=== PATIENT | female | born 1935 | race Caucasian/White ===

== ENCOUNTER 2017-03-31 04:20 | Inpatient (IN) | payer OTHER ==
[~2017-03-31] VITALS: Ht 160 cm; Wt 65.8 kg
[~2017-03-31 04:20] MED LIST: BABY ASPIRIN PO; DIAVAN PO; MAC100 PO; PRILOSEC40 MG PO; ZOCOR10 MG PO; [UNRECOGNIZED DRUG - OTHER] PO
--- NOTE | 2017-03-31 04:41 | NUR ---
PT BIB [facility]. PT BROUGHT TO ROOM BY CASIE. PT ABLE TO SHIFT TO BED WITH SOME HELP. PT C/O GENERALIZED WEAKNESS AND FLU LIKE SYMPTOMS X 1 DAY. PT STATES SHE HAD TEMP OF 102+ AT HOME. PT HAD RECENT PROCEDURE OF INJECTING NERVES IN HER BACK AND SHE WAS INTUBATED FOR THE PROCEDURE. PT IS LAYING IN BED ON THE CARDIAC MOITOR. LUNG SOUNS ARE CTA RIGHT SIDE AND DIM/CONGESTED LLL. CALL LIGHT IS WITHIN REACH AND DAUGHTER IS AT BEDSIDE. WILL CONTINUE TO MONITOR.
[2017-03-31 05:26] LABS: BASOPHIL % 0.4 % (0-2); PLATELET COUNT 212 x10^3mcL (130-400); RED CELL DISTRIBUTION WIDTH 14.1 % (11.5-14.5)
[2017-03-31 05:31] LABS: CALCIUM 8.7 mg/dL (8.5-10.1); CARBON DIOXIDE 30.2 mmol/L (21-32); CHLORIDE SERUM 98 mmol/L (98-107); CREATININE SERUM 0.7 mg/dL (0.6-1.0); GLUCOSE SERUM 143 mg/dL (74-106); POTASSIUM SERUM 3.4 mmol/L (3.5-5.1); SODIUM SERUM 138 mmol/L (136-145)
[2017-03-31 05:36] LABS: ALBUMIN 3.8 g/dL (3.4-5.0); ALKALINE PHOSPHATASE 72 U/L (46-116); ALT/SGPT 27 U/L (14-59); AST/SGOT 20 U/L (15-37); BILIRUBIN TOTAL 0.49 mg/dL (0.20-1.00); TOTAL PROTEIN, SERUM 7.3 g/dL (6.4-8.2)
[2017-03-31 05:58] LABS: CK-MB < 0.5 ng/mL (0-3.6); CREATINE KINASE 148 U/L (26-192)
[2017-03-31] MEDS ORDERED: DIOVAN320 MG PO (06:42)
[2017-03-31] MEDS ORDERED: NORVASC10 MG PO (06:45)
[2017-03-31] MEDS ORDERED: GOOD SENSE OMEP20 MG PO (06:46)
[2017-03-31] MEDS ORDERED: CYMBALTA60 M1 PO (06:46)
[2017-03-31] MEDS ORDERED: LOPRESSOR50 M1 PO (06:47)
[2017-03-31] MEDS ORDERED: CYCLOBENZAPRINE5 MG PO (06:48)
[2017-03-31] MEDS ORDERED: AMITRIPTYLINE H25 MG PO (06:50)
[2017-03-31] MEDS ORDERED: LASIX20 MG PO (06:51)
--- NOTE | 2017-03-31 07:05 | NUR ---
REPORT GIVEN TO RENETTA ALMANZAR. ALL QUESTIONS AND CONCERNS ADDRESSED.
--- NOTE | 2017-03-31 07:42 | NUR ---
PT ADMIT TO TELE ROOM 219A GAVE REPORT TO YVES
--- NOTE | 2017-03-31 07:57 | NUR ---
RECEIVED THE PATIENT FROM ER DEPT VIA [facility]; THE PATIENT AMBULATED TO THE BED WITH SLOW GAIT. THE PATIENT ALERT AND ORIENTED TO PERSON, PLACE AND TIME. H/L NOTED TO LAC. TELE # 36 APPLIED. VS CHECKED. ORIENTED THE PATIENT TO ROOM AND EQUIPMENT. ASSESSMENT WAS IMPLEMENTED. CALL LIGHT WITHIN REACH. SIDE RAILS UP X3. BED WAS AT LOWEST POSITION AND BED ALARM WAS ON. CONTINUE TO MONITOR.
[2017-03-31 08:03] LABS: CHOLESTEROL/HDL RATIO 2.5
[2017-03-31 08:10] LABS: T3 TOTAL 1.1 ng/mL
[2017-03-31 08:12] LABS: FREE T4 1.13 ng/dL (0.76-1.46); FREE THYROXINE INDEX 3.1 ug/dL (1.4-4.5); T4(THYROXINE) 8.9 ug/dL (4.7-13.3)
[2017-03-31 08:45] VITALS: BP 132/47
[2017-03-31 09:53] VITALS: BP 132/47
[2017-03-31 14:21] VITALS: BP 136/52
[2017-03-31 15:22] LABS: UA SPECIFIC GRAVITY <=1.005 (1.005-1.035); microscopic required? YES; urine erythrocyte TRACE (NEGATIVE)
[2017-03-31 17:43] VITALS: BP 156/49
--- NOTE | 2017-03-31 18:41 | NUR ---
THE PATIENT STATED FEELING BETTER AND DID NOT NEED NASAL CANNULA FOR OXYGEN. PATIENT USED BRP DURING THE SHIFT.
--- NOTE | 2017-03-31 19:10 | NUR ---
REC'D PT FROM DAY SHIFT NURSE. PT AAOX4, SPEECH CLEAR, FOLLOWS COMMANDS. REMOVED TELE PER ORDER. DENIES CP, DIZZINESS, OR PALPITATIONS. NO RESP DISTRESS OR SOB. C/O PRODUCTIVE COUGH WITH SMALL AMTS OF YELLOW SPUTUM. MUCOMYST TO BE ADM BY RT. SKIN INTACT. AMBULATORY. ALSO C/O NECK PAIN AND DORSEY 4/10. WILL GIVE TYLENOL PER ORDER. TEMP OF 99.6. COOLING MEASURES IN PLACE- APPLIED COLD COMPRESS, AC ON, BLANKETS REMOVED. CALL LIGHT WITHIN REACH, BED AT LOWEST POSITION. WILL CONTINUE TO MONITOR.
--- NOTE | 2017-03-31 19:58 | NUR ---
TOMMY REMOVAL AND REPLACEMENT SCHEDULED FOR 03/24 @ 1030. PT HAS HD SCHEDULED FOR 04/01 @ 1200. SPOKE TO [facility] TO CONFIRM APPT. INFORMED HER DAY NURSE WILL CALL ONCE PT HAS COMPLETED SX.
[2017-03-31 21:06] VITALS: BP 150/54
--- NOTE | 2017-04-01 02:34 | NUR ---
PT RESTING IN BED WITH EYES CLOSED. AUDIBLE SNORING. NO SIGNS OF DISTRESS NOTED. BREATHING EVEN/UNLABORED ON RA. CALL LIGHT WITHIN REACH, BED AT LOWEST POSITION. WILL CONTINUE TO MONITOR.
[2017-04-01 05:26] VITALS: BP 151/54
[2017-04-01 06:26] LABS: BASOPHIL % 0.2 % (0-2); PLATELET COUNT 164 x10^3mcL (130-400); RED CELL DISTRIBUTION WIDTH 13.7 % (11.5-14.5)
--- NOTE | 2017-04-01 06:27 | NUR ---
PT RESTING IN BED WITH EYES CLOSED. NO SIGNS OF DISTRESS NOTED. BREATHING EVEN/UNLABORED ON RA. C/O DORSEY 02/22 AND COUGH WITH YELLOW SPUTUM. TYLENOL GIVEN PER ORDER, MUCOMYST TO BE GIVEN BY RT. PT STATES SHE FEELS BETTER AND SLEPT WELL. PT AFEBRILE. NO SIGNIFICANT CHANGES DURING SHIFT. WILL ENDORSE TO DAY SHIFT NURSE.
[2017-04-01 06:48] LABS: CALCIUM 8.6 mg/dL (8.5-10.1); CARBON DIOXIDE 29.9 mmol/L (21-32); CHLORIDE SERUM 105 mmol/L (98-107); CREATININE SERUM 0.6 mg/dL (0.6-1.0); GLUCOSE SERUM 99 mg/dL (74-106); MAGNESIUM 2.1 mg/dL (1.8-2.4); POTASSIUM SERUM 3.6 mmol/L (3.5-5.1); SODIUM SERUM 142 mmol/L (136-145)
--- NOTE | 2017-04-01 07:30 | NUR ---
RESUME CARE: THE PATIENT ALERT AND ORIENTED TO PERSON, PLACE AND TIME. DENIED SHORTNESS OF BREATH, PAIN OR NAUSEA/VOMITING. PATIENT HAD PRODUCTIVE COUGH WITH YELLOW SPUTUM. IVF NS VIA H/L TO LAC. CALL LIGHT WITHIN REACH. SIDE RAILS UP X3. BED WAS AT LOWEST POSITION AND ALARM WAS ON.
--- NOTE | 2017-04-01 09:10 | NUR ---
DR. BRAY AND THE TEAM WERE MAKING ROUND TO SEE THE PATIENT. THE CARE PLAN WAS DISCUSSED WITH THE PATIENT, AND THE PATIENT VERBALIZED AGREEMENT WITH THE PLAN.
[2017-04-01 10:26] VITALS: BP 128/58
--- NOTE | 2017-04-01 11:25 | NUR ---
DR. MIGUEL IN TO SEE THE PATIENT.
[2017-04-01 18:00] VITALS: BP 131/65
--- NOTE | 2017-04-01 18:43 | NUR ---
PATIENT'S APPETITE INCREASED GRADUALLY. PATIENT AMBULATED IN THE HALLWAY SEVERAL TIMES DURING THE SHIFT.
--- NOTE | 2017-04-01 19:20 | NUR ---
PATIENT RECEIVED AWAKE, ALERT, AND ORIENTED X 4. NO DISTRESS NOTED. NO C/O PAIN/DISCOMFORT. IV SITE TO LEFT AC, PATENT AND INTACT. IV FLUID INFUSING PER DOCTOR'S ORDER. BED IN LOWEST POSITION. CALL LIGHT WITHIN REACH. WILL CONTINUET TO MONITOR.
[2017-04-01 20:40] VITALS: BP 150/56
--- NOTE | 2017-04-02 05:13 | NUR ---
PATIENT RESTED THROUGHOUT THE NIGHT. NO DISTRESS NOTED. NO C/O PAIN/DISCOMFORT. ALL NEEDS MET. SAFETY AND COMFORT MEASURES MAINTAINED. BED IN LOWEST POSITION. CALL LIGHT WITHIN REACH. WILL CONTINUE TO MONITOR AND ENDORSE TO NEXT SHIFT NURSE.
[2017-04-02 05:28] VITALS: BP 155/46
[2017-04-02 06:19] LABS: BASOPHIL % 0.2 % (0-2); PLATELET COUNT 160 x10^3mcL (130-400); RED CELL DISTRIBUTION WIDTH 14.2 % (11.5-14.5)
--- NOTE | 2017-04-02 09:00 | NUR ---
Pt is A+Ox4, denies pain, nausea, headache, and SOB. Pt is [place]. PULSES STRONG AND EQUAL BILATERALLY, NO EDEMA PRESENT, PT IS AMBULATORY WITHOUT ASSISTANCE, LUNG SOUNDS: CRACKLES, PRODUCTIVE COUGH WITH YELLOW SPUTUM, BOWEL SOUNDS ACTIVE IN ALL 4 QUADRANTS, VOIDING WITHOUT DIFFICULTY, SKIN INTACT, IV IN LAC WITH NS @80 ML/HR. AFEBRILE.
[2017-04-02 09:49] VITALS: BP 155/60
[2017-04-02] MEDS ORDERED: LEVAQUIN500 M1 PO (10:33)
[2017-04-02] MEDS ORDERED: CLEOCIN HCL300 MG PO (10:33)
[2017-04-02] MEDS ORDERED: LAC PO (10:34)
[2017-04-02] MEDS ORDERED: ROBITUSSIN PEA PO (10:47)
--- NOTE | 2017-04-02 12:56 | NUR ---
PT SITTING AT EDGE OF BED, RT IN THE ROOM GIVING A BREATHING TREATMENT.
[2017-04-02 13:29] VITALS: BP 154/55
[2017-04-02 13:32] VITALS: BP 154/55
--- NOTE | 2017-04-02 14:00 | NUR ---
PT GIVEN DISCHARGE INSTRUCTIONS AND EDUCATION. PT VERBALIZED UNDERSTANDING. IV REMOVED, CATHETER INTACT, GAUZE AND TAPE PLACED ON SITE. 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
== END 2017-04-02 14:15 | disposition home or self-care (01) | DRG 178 ==
LOC: ED 04:20 → DU 06:05 → MU 06:05 → DU 07:55 → MU 21:43
PROVIDERS: Emergency Medicine; Family Medicine; ADMIT Family Medicine
DX: J69.0 Pneumonitis due to inhalation of food and vomit (principal); J98.11 Atelectasis; M79.7 Fibromyalgia; E87.6 Hypokalemia; I10 Essential (primary) hypertension; M19.90 Unspecified osteoarthritis, unspecified site; E78.5 Hyperlipidemia, unspecified; Z68.25 Body mass index [BMI] 25.0-25.9, adult
CPT/HCPCS: 83880; 84439; C9113; J0132; J1885; J1940; J1956; J2543; J7030; J7620; Q0177

== ENCOUNTER → 2017-05-31 | Outpatient (CLI) | payer OTHER ==
[~2017-05-31] MED LIST changes: +AMITRIPTYLINE H25 MG PO; +CLEOCIN HCL300 MG PO; +CYCLOBENZAPRINE5 MG PO; +CYMBALTA60 M1 PO; +DIOVAN320 MG PO; +GOOD SENSE OMEP20 MG PO; +LAC PO; +LASIX20 MG PO; +LEVAQUIN500 M1 PO; +LOPRESSOR50 M1 PO; +NORVASC10 MG PO; +ROBITUSSIN PEA PO
[2017-05-31 11:49] LABS: BASOPHIL % 0.5 % (0-2); PLATELET COUNT 216 x10^3mcL (130-400); RED CELL DISTRIBUTION WIDTH 13.2 % (11.5-14.5)
[2017-05-31 12:12] LABS: IRON 88 ug/dL (50-170); TOTAL IRON BINDING CAPACITY 322 ug/dL (250-450)
[2017-05-31 12:13] LABS: ALBUMIN 3.7 g/dL (3.4-5.0); ALKALINE PHOSPHATASE 69 U/L (46-116); ALT/SGPT 26 U/L (14-59); AST/SGOT 25 U/L (15-37); BILIRUBIN TOTAL 0.28 mg/dL (0.20-1.00); CALCIUM 8.7 mg/dL (8.5-10.1); CARBON DIOXIDE 30.2 mmol/L (21-32); CHLORIDE SERUM 105 mmol/L (98-107); CREATININE SERUM 0.7 mg/dL (0.6-1.0); GLUCOSE SERUM 79 mg/dL (74-106); POTASSIUM SERUM 4.2 mmol/L (3.5-5.1); SODIUM SERUM 143 mmol/L (136-145); TOTAL PROTEIN, SERUM 7.3 g/dL (6.4-8.2)
[2017-05-31 15:59] LABS: FREE T4 0.94 ng/dL (0.76-1.46); FREE THYROXINE INDEX 2.5 ug/dL (1.4-4.5); T4(THYROXINE) 7.4 ug/dL (4.7-13.3)
== END | disposition home or self-care (01) ==
LOC: LB 10:54
DX: R53.83 Other fatigue (principal)
CPT/HCPCS: 84439

== ENCOUNTER → 2017-06-09 | Outpatient (CLI) | payer OTHER ==
[2017-06-09 13:20] LABS: microscopic required? YES; urine erythrocyte NEGATIVE (NEGATIVE)
[2017-06-09 13:41] LABS: CALCIUM 8.9 mg/dL (8.5-10.1); PHOSPHOROUS 3.8 mg/dL (2.5-4.9); URIC ACID 3.3 mg/dL (2.6-6.0)
[2017-06-09 13:52] LABS: C REACTIVE PROTEIN < 0.2 mg/dL (<=0.9)
== END | disposition home or self-care (01) ==
LOC: LB 12:50
DX: R30.0 Dysuria (principal); M06.9 Rheumatoid arthritis, unspecified
CPT/HCPCS: 86147; 86200; 86431

== ENCOUNTER → 2017-12-06 | Outpatient (CLI) | payer OTHER ==
[2017-12-06 11:14] LABS: BASOPHIL % 0.5 % (0-2); PLATELET COUNT 218 x10^3mcL (130-400); RED CELL DISTRIBUTION WIDTH 13.7 % (11.5-14.5)
[2017-12-06 11:26] LABS: ALKALINE PHOSPHATASE 74 U/L (46-116); ALT/SGPT 26 U/L (14-59); AST/SGOT 23 U/L (15-37); BILIRUBIN TOTAL 0.44 mg/dL (0.20-1.00); CALCIUM 9.1 mg/dL (8.5-10.1); CARBON DIOXIDE 30.3 mmol/L (21-32); CHLORIDE SERUM 102 mmol/L (98-107); CREATININE SERUM 0.7 mg/dL (0.6-1.0); GLUCOSE SERUM 98 mg/dL (74-106); POTASSIUM SERUM 4.8 mmol/L (3.5-5.1); SODIUM SERUM 138 mmol/L (136-145); TRIGLYCERIDES 94 mg/dL (<150)
[2017-12-06 11:27] LABS: CHOLESTEROL 226 mg/dL (<200); CHOLESTEROL/HDL RATIO 2.4; HDL CHOLESTEROL 96 mg/dL (40-60)
== END | disposition home or self-care (01) ==
LOC: LB 10:07
PROVIDERS: Family Medicine
DX: I10 Essential (primary) hypertension (principal)

== ENCOUNTER → 2017-12-15 | Outpatient (CLI) | payer OTHER | END | disposition home or self-care (01) | LOC: RD 10:59 | DX: M25.561 Pain in right knee (principal); M25.562 Pain in left knee ==

== ENCOUNTER → 2018-03-11 | Outpatient (CLI) | payer OTHER ==
[2018-03-12 09:06] LABS: BASOPHIL % 0.5 % (0-2); PLATELET COUNT 212 x10^3mcL (130-400); RED CELL DISTRIBUTION WIDTH 13.9 % (11.5-14.5)
[2018-03-12 09:18] LABS: ALBUMIN 3.5 g/dL (3.4-5.0); ALKALINE PHOSPHATASE 57 U/L (46-116); ALT/SGPT 26 U/L (14-59); AST/SGOT 18 U/L (15-37); BILIRUBIN TOTAL 0.32 mg/dL (0.20-1.00); CALCIUM 8.6 mg/dL (8.5-10.1); CARBON DIOXIDE 31.9 mmol/L (21-32); CHLORIDE SERUM 100 mmol/L (98-107); CREATININE SERUM 0.7 mg/dL (0.6-1.0); GLUCOSE SERUM 99 mg/dL (74-106); MAGNESIUM 2.3 mg/dL (1.8-2.4); PHOSPHOROUS 4.1 mg/dL (2.5-4.9); POTASSIUM SERUM 4.4 mmol/L (3.5-5.1); SODIUM SERUM 133 mmol/L (136-145); TOTAL PROTEIN, SERUM 6.6 g/dL (6.4-8.2); TRIGLYCERIDES 44 mg/dL (<150)
[2018-03-12 09:31] LABS: CHOLESTEROL 205 mg/dL (<200); CHOLESTEROL/HDL RATIO 2.5; HDL CHOLESTEROL 83 mg/dL (40-60)
== END | disposition home or self-care (01) ==
LOC: LB 12:37
PROVIDERS: Family Medicine
DX: Z00.00 Encounter for general adult medical examination without abnormal findings (principal); I10 Essential (primary) hypertension

== ENCOUNTER → 2018-08-30 | Outpatient (CLI) | payer OTHER | END | disposition home or self-care (01) | LOC: RD 12:33 | DX: M79.672 Pain in left foot (principal); M79.671 Pain in right foot ==

== ENCOUNTER → 2019-05-24 | Outpatient (CLI) | payer OTHER | END | disposition home or self-care (01) | LOC: CT 09:00 | PROC: BW28ZZZ Computerized Tomography (CT Scan) of Head (ICD-10-PCS; principal; 2019-05-24) | DX: Z91.81 History of falling (principal) ==

== ENCOUNTER 2019-05-30 16:37 | Emergency (ER) | payer OTHER ==
[~2019-05-30] VITALS: Ht 167.6 cm; Wt 65.8 kg
[2019-05-30 16:58] VITALS: BP 130/63; Ht 167.6 cm; Wt 65.8 kg
== END 2019-05-30 19:40 | disposition home or self-care (01) ==
LOC: ED 16:37
DX: S61.217A Laceration without foreign body of left little finger without damage to nail, initial encounter (principal); S63.501A Unspecified sprain of right wrist, initial encounter; S20.212A Contusion of left front wall of thorax, initial encounter; S60.411A Abrasion of left index finger, initial encounter; I10 Essential (primary) hypertension; Z88.5 Allergy status to narcotic agent; W01.0XXA Fall on same level from slipping, tripping and stumbling without subsequent striking against object, initial encounter; Y93.89 Activity, other specified; Y92.810 Car as the place of occurrence of the external cause; Y99.8 Other external cause status
CPT/HCPCS: 90715

== ENCOUNTER → 2019-06-16 | Outpatient (CLI) | payer OTHER | END | disposition home or self-care (01) | LOC: CT 13:13 | PROC: BW28ZZZ Computerized Tomography (CT Scan) of Head (ICD-10-PCS; principal; 2019-06-16) | DX: S09.90XS Unspecified injury of head, sequela (principal); Z91.81 History of falling ==

== ENCOUNTER → 2019-08-22 | Outpatient (CLI) | payer OTHER | END | disposition home or self-care (01) | LOC: RD 14:35 | DX: M54.9 Dorsalgia, unspecified (principal) | CPT/HCPCS: 72072 ==

== ENCOUNTER → 2019-10-17 | Outpatient (CLI) | payer OTHER | END | disposition home or self-care (01) | LOC: RD 10-16 11:24 | PROC: BW40ZZZ Ultrasonography of Abdomen (ICD-10-PCS; principal; 2019-10-17) | DX: I72.8 Aneurysm of other specified arteries (principal) ==

== ENCOUNTER → 2020-04-02 | Outpatient (CLI) | payer OTHER | END | disposition home or self-care (01) | LOC: US 10:29 | PROC: BH4CZZZ Ultrasonography of Head and Neck (ICD-10-PCS; principal; 2020-04-02) | DX: R22.1 Localized swelling, mass and lump, neck (principal) ==

== ENCOUNTER → 2020-08-05 | Outpatient (CLI) | payer OTHER | END | disposition home or self-care (01) | LOC: CT 10:23 | PROC: BW21ZZZ Computerized Tomography (CT Scan) of Abdomen and Pelvis (ICD-10-PCS; principal; 2020-08-05) | DX: I72.8 Aneurysm of other specified arteries (principal) ==

== ENCOUNTER → 2020-08-16 | Outpatient (CLI) | payer OTHER | END | disposition home or self-care (01) | LOC: CT 09:27 | PROC: BW211ZZ Computerized Tomography (CT Scan) of Abdomen and Pelvis using Low Osmolar Contrast (ICD-10-PCS; principal; 2020-08-16) | DX: I72.8 Aneurysm of other specified arteries (principal) | CPT/HCPCS: Q9967 ==